=== PATIENT | male | born 1965 | race African-American/Black ===

== ENCOUNTER 2021-04-20 00:05 | Emergency (ER) | payer OTHER ==
[~2021-04-20] VITALS: Ht 185.4 cm; Wt 83.9 kg
[2021-04-20 00:10] VITALS: BP 171/110
--- NOTE | 2021-04-20 00:10 | NUR ---
BIB TAKEN TO BED #4
--- NOTE | 2021-04-20 00:30 | NUR ---
PATIENT LAYING IN BED IN R LATERAL POSITION. PATIENT APPEARS TO BE RESTING W EYES CLOSED. BREATHING EVEN AND UNLABORED. NAD NOTED, WILL CONTINUE TO MONITOR.
--- NOTE | 2021-04-20 01:02 | NUR ---
55 YO/M BIBA W C/O BILATERAL FOOT PAIN 10/10 CONSTANT NON-RADIATING. PATIENT DESCRIBES PAIN ONLY "PAIN." DENIES ANY INJURIES TO FEET. UNABLE TO FULLY ASSESS FEET D/T INCREASING PAIN AMONGST TOUCH. CAP REFIL<3 SEC, SENSATION PRESENT TO BILATERAL FEET. EDEMA TO BILATERAL FEET NOTED. PATIENT DENIES ANY OTHER SYMPTOMS. PATIENT REPORTS DRUG USE OF SPEED AND WEED USE. VSS. PATIENT LAYING IN R LATERAL POSITION, BED LOCKED IN LOWEST POSITION W X2 SIDERAILS UP. BREATHING EVEN AND UNLABORED. NAD NOTED, WILL CONTINUE TO MONITOR. PMH:HTN, DIABETES NKA
--- NOTE | 2021-04-20 01:02 | NUR ---
Note undone in EDM - 04/20/21 at 0115 by ESTRELLA 55 YO/M BIBA W C/O BILATERAL FOOT PAIN 05/03 CONSTANT NON-RADIATING. PATIENT DESCRIBES PAIN ONLY "PAIN." DENIES ANY INJURIES TO FEET. UNABLE TO FULLY ASSESS FEET D/T INCREASING PAIN AMONGST TOUCH. CAP REFIL<3 SEC, SENSATION PRESENT TO BILATERAL FEET. PATIENT DENIES ANY OTHER SYMPTOMS. PATIENT REPORTS DRUG USE OF SPEED AND WEED USE. VSS. PATIENT LAYING IN R LATERAL POSITION, BED LOCKED IN LOWEST POSITION W X2 SIDERAILS UP. BREATHING EVEN AND UNLABORED. NAD NOTED, WILL CONTINUE TO MONITOR. PMH:HTN, DIABETES NKA
--- NOTE | 2021-04-20 01:30 | NUR ---
PATIENT LAYING IN BED IN R LATERAL POSITION. PATIENT APPEARS TO BE RESTING W EYES CLOSED. BLANKET ON. BREATHING EVEN AND UNLABORED. NAD NOTED, WILL CONTINUE TO MONITOR.
--- NOTE | 2021-04-20 01:45 | NUR ---
PT PROVIDED WITH MEAL AT THIS TIME.
[2021-04-20] MEDS ORDERED: NAPR-54 PO (01:57)
[2021-04-20 03:08] VITALS: BP 134/56
--- NOTE | 2021-04-20 03:08 | NUR ---
Patient discharged with v/s stable. Written and verbal after care instructions given and explained. Patient alert, oriented and verbalized understanding of instructions. Wheel Chair Assisted with to JEANETH Vaughn PATIENT OWN WHEELCHAIR. All questions addressed prior to discharge. ID band removed. Patient advised to follow up with PMD. Rx of NAPROXEN given. Patient educated on indication of medication including possible reaction and side effects. Opportunity to ask questions provided and answered.
== END 2021-04-20 03:08 | disposition home or self-care (01) ==
LOC: MED 00:05
DX: M79.671 Pain in right foot (principal); M79.672 Pain in left foot; E11.9 Type 2 diabetes mellitus without complications; I10 Essential (primary) hypertension; Z79.899 Other long term (current) drug therapy; Z98.890 Other specified postprocedural states
CPT/HCPCS: 99282